=== PATIENT | female | born 1950 | race Caucasian/White ===

== ENCOUNTER 2018-05-19 03:21 | Emergency (ER) | payer OTHER ==
[~2018-05-19] VITALS: Ht 162.6 cm; Wt 102.1 kg
[2018-05-19 03:38] VITALS: BP_SYST 157
[2018-05-19] MEDS ORDERED: EST1 PO (03:55)
[2018-05-19] MEDS ORDERED: VENL37.510 PO (03:55)
[2018-05-19] MEDS ORDERED: TYC3 PO (03:55)
[2018-05-19] MEDS ORDERED: CEPH500C2 PO (03:55)
[2018-05-19] MEDS ORDERED: ALPR1TAB2 PO (03:55)
[2018-05-19] MEDS ORDERED: MORPHINE 4 MG/ML INJ. SYRINGE IVP ONE (04:00)
[2018-05-19] MEDS ORDERED: MORPHINE 4 MG/ML INJ. SYRINGE IM ONE (04:15)
[2018-05-19 04:27] VITALS: BP_SYST 152
== END 2018-05-19 04:27 | disposition home or self-care (01) ==
LOC: SED 03:21
DX: K08.89 Other specified disorders of teeth and supporting structures (principal); M79.7 Fibromyalgia
CPT/HCPCS: 96372; 99283; J2270